=== PATIENT | male | born 1960 | race Caucasian/White ===

== ENCOUNTER → 2020-01-09 | Outpatient (CLI) | payer BC ==
--- NOTE | 2020-01-09 12:57 | RAD ---
EXAM: Bilateral knees, standing view. HISTORY: Pain. COMPARISON: None. FINDINGS: A frontal standing view both knees is obtained. There is no fracture, dislocation or subluxation. No lytic or sclerotic osseous lesion or periosteal reaction is seen. IMPRESSION: No acute osseous finding. Electronically signed by: Lianna Arzola MD (01/09/2020 12:53 PM) [id number]
--- NOTE | 2020-01-09 13:15 | RAD ---
HAND BILAT 3V 01/09/2020 12:00 AM INDICATION: Painful degenerative changes of both knees and hands COMPARISON: None available TECHNIQUE: 3 views of the right and 3 views of the left hand are provided. FINDINGS/ IMPRESSION: 1. Right hand: There is no acute fracture or dislocation. There is mild to moderate joint space narrowing involving the interphalangeal joint of the first digit with marginal osteophytosis compatible with mild/moderate osteoarthrosis. There is remodeling of the head of the third metacarpal which may be secondary to remote trauma or degenerative changes. Mild joint space narrowing of the third and fourth metacarpophalangeal joint with marginal osteophytosis. Bone mineralization is within normal limits. No significant soft tissue swelling is identified. 2. Left hand: There is no acute fracture or dislocation. Bone mineralization is within normal limits. Joint spaces are maintained. No significant soft tissue swelling is present. Subtle mineralization identified within the triradiate cartilage may be associated with calcium pyrophosphate deposition. Electronically signed by: Tamiko Castro MD (01/09/2020 1:12 PM) MARY [facility]
== END | disposition home or self-care (01) ==
LOC: RAD 12:15
PROVIDERS: ATTEND Physical Medicine & Rehabilitation
DX: M17.0 Bilateral primary osteoarthritis of knee (principal); M19.042 Primary osteoarthritis, left hand; M19.041 Primary osteoarthritis, right hand
CPT/HCPCS: 73130; 73565